=== PATIENT | female | born 2000 | race Caucasian/White ===

== ENCOUNTER 2021-11-16 14:41 | Inpatient (IN) | payer OTHER, SELFPAY ==
[2021-11-16] VITALS (81 sets, daily range): BP systolic 118–143; BP diastolic 58–117; PULSE 75–134; TEMP 36.8–37.1; O2SAT 100; BMI 30.3
--- NOTE | 2021-11-16 14:41 | LDADM ---
This patient, Geri Lzoano, was admitted to Labor/Delivery/Recovery 106 on 11/16/21 at 14:41. Plans for labor, pain management and were discussed with patient. Patient/family oriented to hospital policies and general routines including ID bracelet, bed and alarms, visiting hours, pain management, procedures, bathroom and other care routines, personal items, smoking policy, room service/diet and guest tray routines, security routines, and visiting hours. Patient/Family are encouraged to report perceived risks to care and to ask questions if they do not understand what they are told or what they should do. See OBIX for further documentation.
--- OUTSIDE RECORDS SUMMARY | 2021-11-16 14:52 | XMS_ITS ---
:2000 Author Care Team Providers Name Role Phone BAKARI JENNA BARCENAS Primary Care Provider [phone] Allergies Code Code System Name Reaction Severity Status Onset Latex, ? ? Active ? Natural Rubber Notes: STEROID INHALER Medications Name Status Start Date Stop Date ? ? Albuterol Sulfate HFA Completed ? 07/26/2021 albuterol sulfate HFA 90 mcg/actuation aerosol inhaler Active ? Not available TAKE 2 PUFFS BY MOUTH EVERY 6 HOURS NEEDED FOR WHEEZE OR SHORTNESS OF BREATH bupropion HCl SR 150 mg tablet,12 hr Completed ? 09/22/2021 sustained-release bupropion HCl XL 150 mg 24 hr tablet, Active ? Not available extended release bupropion HCl XL 300 mg 24 hr tablet, extended release Completed ? 06/14/2021 TAKE 1 TABLET BY MOUTH EVERY DAY IN THE MORNING fluconazole 150 mg tablet Completed ? 2021 TAKE 1 TABLET BY MOUTH EVERY DAY FOR 1 DAY Gianvi (28) 3 mg-0.02 mg tablet Completed ? 06/14/2021 TAKE 1 TABLET BY MOUTH EVERY DAY hydroxyzine HCl 25 mg tablet Completed ? 01/2021 TAKE 1/2 1 TABLET EVERY 8 HOURS NEED ED FOR ANXIETY OR AT BEDTIME FOR INSOMNIA lamotrigine 100 mg tablet Completed ? 2020 TAKE 1/2 TABLET BY MOUTH AT BEDTIME X 1 0DAYS AND THEN UP TO 1 TABLET AT BEDTIME lamotrigine 150 mg tablet Completed ? 2020 TAKE 1 TABLET BY MOUTH EVERYDAY AT BEDTIME
--- OUTSIDE RECORDS SUMMARY | 2021-11-16 14:52 | XMS_ITS | Encounter Summary ---
:2000 Author Care Team Providers Name Role Phone Evelin Jaylene BARCENAS Primary Care Provider [phone] Reason for Visit OB visit [id number] Assessment and Plan 1. Routine care Discussion Note: None recorded.Patient educational handouts: No information available. Plan of Care Reminders Provider Appointments None ? ? recorded. Lab None ? ? recorded. Referral None ? ? recorded. Procedures None ? ? recorded. Surgeries None ? ? recorded. Imaging None ? ? recorded. Medications Name Start Date ? ? albuterol sulfate HFA 90 mcg/actuation aerosol inhaler ? TAKE 2 PUFFS BY MOUTH EVERY 6 HOURS NEEDED FOR WHEEZE OR SHORTNESS OF BREATH bupropion HCl XL 150 mg 24 hr tablet, extended release ? TAKE 1 TABLET BY MOUTH EVERY DAY ondansetron HCl 4 mg tablet ? TAKE 1 TABLET BY MOUTH EVERY 6 HOURS NEEDED Vitamins ? valacyclovir 1 gram tablet ? Take 1 tablet every day by oral route for 5 days. valacyclovir 500 mg tablet ? TAKE 1 TABLET BY MOUTH TWICE A DAY Medications Administered None recorded. Vitals Height Weight BMI Blood Pressure 5 ft 8 in 170 lbs 25.8 kg/m2 116/76 mm[Hg] Results Lab Results
--- OUTSIDE RECORDS SUMMARY | 2021-11-16 14:52 | XMS_ITS | Encounter Summary ---
:2000 Author Care Team Providers Name Role Phone Evelin Jaylene BARCENAS Primary Care Provider [phone] Reason for Visit OB visit OB [id number] EDC 11/10/2021 LMP 01/22/2021 Assessment and Plan Assessment Note Patient is _36__weeks . Dis cussed plan. 1. Routine care Discussion Note: None recorded.Patient [...]
--- OUTSIDE RECORDS SUMMARY | 2021-11-16 14:52 | XMS_ITS | Encounter Summary ---
:2000 Author Care Team Providers Name Role Phone Evelin Jaylene BARCENAS Primary Care Provider [phone] Reason for Visit None recorded. Assessment and Plan 1. Post-term of 40 to 42 weeks ? non-stress test Discussion Note: None recorded.Patient educational handouts: No information available. Plan of Care Reminders Provider Appointments None ? ? recorded. Lab None ? ? recorded. Referral None ? ? recorded. Procedures None ? ? recorded. Surgeries None ? ? recorded. Imaging 2021 [place] Non-stress Test Medications Name Start Date ? ? albuterol [...] A DAY Medications Administered None recorded. Vitals None recorded. Results Lab Results None rec
--- OUTSIDE RECORDS SUMMARY | 2021-11-16 14:52 | XMS_ITS | Encounter Summary ---
:2000 Author Care Team Providers Name Role Phone Evelin Jaylene BARCENAS Primary Care Provider [phone] Reason for Visit OB visit OB [id number] EDC 11/10/2021 LMP 01/22/2021 Assessment and Plan Assessment Note Patient is34 ___weeks . Dis cussed plan. 1. Routine care [...]
--- OUTSIDE RECORDS SUMMARY | 2021-11-16 14:52 | XMS_ITS | Encounter Summary ---
:2000 Author Care Team Providers Name Role Phone Evelin Jaylene BARCENAS Primary Care Provider [phone] Reason for Visit OB visit OB [id number] EDC 11/10/2021 LMP 01/22/2021 Assessment and Plan Assessment Note Patient is 40___weeks . Dis cussed plan. 1. Routine care [...]
--- OUTSIDE RECORDS SUMMARY | 2021-11-16 14:52 | XMS_ITS | Encounter Summary ---
:2000 Author Care Team Providers Name Role Phone Evelin Jaylene BARCENAS Primary Care Provider [phone] Reason for Visit OB visit OB [id number] EDC 11/10/2021 LMP 01/22/2021 Assessment and Plan Assessment Note Patient is _36__weeks . Dis cussed plan. 1. Routine care ? Wellbutrin XL 150 mg 24 hr tablet, extended release 2. Genital herpes simplex ? Valtrex 500 mg tablet Discussion Note: None recorded.Patient educational handouts: No [...] every day by oral route for 5 da
--- OUTSIDE RECORDS SUMMARY | 2021-11-16 14:52 | XMS_ITS | Encounter Summary ---
:2000 Author Care Team Providers Name Role Phone Evelin Jaylene BARCENAS Primary Care Provider [phone] Reason for Visit OB visit OB [id number] EDC 11/10/2021 LMP 01/22/2021 Assessment and Plan Assessment Note Patient is _30__weeks . Dis cussed plan. 1. Routine care [...]
--- OUTSIDE RECORDS SUMMARY | 2021-11-16 14:52 | XMS_ITS | Encounter Summary ---
:2000 Author Care Team Providers Name Role Phone Evelin Jaylene BARCENAS Primary Care Provider [phone] Reason for Visit OB visit OB [id number] EDC 11/10/2021 LMP 01/22/2021 Assessment and Plan Assessment Note Patient is _37__weeks . Dis cussed plan. 1. Routine care [...]
--- OUTSIDE RECORDS SUMMARY | 2021-11-16 14:52 | XMS_ITS | Encounter Summary ---
:2000 Author Care Team Providers Name Role Phone Evelin Mariee NP Primary Care Provider [phone] Reason for Visit None recorded. Assessment and Plan 1. Uterine size for dates discre pancy ? US, obstetric, follow-up Discussion Note: None recorded.Patient educational handouts: No information available. Plan of Care Reminders Provider Appointments None ? ? recorded. Lab None ? ? recorded. Referral None ? ? recorded. Procedures None ? ? recorded. Surgeries None ? ? recorded. Imaging US, 10/19/2021 [place] Obstetric, Follow-up Medications Name Start Date ? ? albuterol [...]
--- OUTSIDE RECORDS SUMMARY | 2021-11-16 14:52 | XMS_ITS | Encounter Summary ---
:2000 Author Care Team Providers Name Role Phone Evelin Jaylene BARCENAS Primary Care Provider [phone] Reason for Visit None recorded. Assessment and Plan 1. Post-term ? US, obstetric, biophysical profile + non-stress test Discussion Note: None recorded.Patient educational handouts: No information available. Plan of Care Reminders Provider Appointments None recorded. ? ? Lab None recorded. ? ? Referral None recorded. ? ? Procedures None recorded. ? ? Surgeries None recorded. ? ? Imaging US, Obstetric, [facility] Biophysical Profile + 2021 Non-stress Test Medications Name Start Date ? [...]
--- OUTSIDE RECORDS SUMMARY | 2021-11-16 14:53 | XMS_ITS | Encounter Summary ---
:2000 Author Care Team Providers Name Role Phone Evelin Jaylene BARCENAS Primary Care Provider [phone] Reason for Visit None recorded. Assessment and Plan 1. condition affecting obs tetrical care of mother ? US, obstetric, follow-up Discussion Note: None recorded.Patient educational handouts: No information available. Plan of Care Reminders Provider Appointments None ? ? recorded. Lab None ? ? recorded. Referral None ? ? recorded. Procedures None ? ? recorded. Surgeries None ? ? recorded. Imaging US, 08/26/2021 [place] Obstetric, Follow-up Medications Name Start Date ? [...]
--- OUTSIDE RECORDS SUMMARY | 2021-11-16 14:53 | XMS_ITS | Encounter Summary ---
:2000 Author Care Team Providers Name Role Phone Evelin Jaylene BARCENAS Primary Care Provider [phone] Reason for Visit OB visit OB [id number] EDC 11/10/2021 LMP 01/22/2021 Assessment and Plan Assessment Note Patient is _29__weeks . Dis cussed plan. 1. Routine care [...]
[2021-11-16 16:07] LABS: Basophils Percent Auto 0.3 % (0.2-1.2); Eosinophils Absolute Auto 0.1 K/mm3 (0-0.3); Eosinophils Percent Auto 0.5 % (0-4.4); Hematocrit 33.5 % (37.0-47.0); Hemoglobin 10.6 g/dL (12.0-15.0); Immature Granulocyte Percent A 0.7 % (0-0.5); Lymphocytes Absolute Auto 2.35 K/mm3 (0.9-3.2); Lymphocytes Percent Auto 16.8 % (18.3-44.2); Mean Corpuscular HGB Conc 31.6 g/dl (32-36); Mean Corpuscular Volume 88.4 fl (80-100); Mean Platelet Volume 11.5 fl (7.4-10.4); Monocytes Absolute Auto 0.8 K/mm3 (0.1-0.6); Monocytes Percent Auto 5.9 % (2.6-8.5); Neutrophils Absolute Auto 10.6 K/mm3 (1.3-6.7); Neutrophils Percent Auto 75.8 % (45.5-73.1); Platelet Count Result 240 k/mm3 (150-375); Red Blood Count 3.79 M/mm3 (4.2-5.4); Red Cell Distribution Width 14.1 % (11.5-14.5)
--- NOTE | 2021-11-16 16:15 | WPDOBADMIT ---
Obstetrics - Admit Note Admission Note: record reviewed. No pertinent additions to the history and/or any subsequent changes in the physical findings that are not consistent with the expected course of the were found. IOL 40.6 weeks gestation SVE /-2, AROM large amount of clear odorless fluid Additions to the history and/or subsequent changes in the physical findings follow. None.
--- NOTE | 2021-11-16 19:13 | WPDANESEPP ---
Anes - Eval Pre Procedure Procedure: LAbor epidural Date/Time: 11/16/21 19:13 Surgeon: Marta Preop Diagnosis: Abd pain with contractions Pre Op Diagnosis: Induction of Labor Patient Data Age: 21 Gender: F Height: 1.73 m Weight: 90.5 kg Last Vital Signs Temp 98.3 F 11/16/21 17:30 Pulse 134 H 11/16/21 18:51 BP 133/95 H 11/16/21 18:51 Allergies Allergy/AdvReac Type Severity Reaction Status Date / Time Latex, Natural Rubber Allergy Itching Verified 11/16/21 15:25 steroid inhaler Allergy Difficulty Uncoded 11/16/21 15:25 Breathing Home Medications Medication Instructions Recorded Confirmed Type albuterol sulfate 90 mcg INHALATION PRN PRN 11/16/21 11/16/21 History valacyclovir 1,000 mg PO BID 11/16/21 11/16/21 History Laboratory Tests 11/16/21 11/16/21 11/16/21 15:56 15:56 15:56 WBC 14.0 K/mm3 H K/mm3 (4.5-10.0) RBC 3.79 M/mm3 L M/mm3 (4.2-5.4) Hgb 10.6 g/dL L g/dL (12.0-15.0) Hct 33.5 % L % (37.0-47.0) MCV 88.4 fl fl (80-100) MCH 28.0 pg pg (26-34) MCHC 31.6 g/dl L g/dl (32-36) RDW 14.1 % % (11.5-14.5) Plt Count 240 k/mm3 k/mm3 (150-375) MPV 11.5 fl H fl (7.4-10.4) Immature Gran % (Auto) 0.7 % H % (0-0.5) Neut % (Auto) 75.8 % H % (45.5-73.1) Lymph % (Auto) 16.8 % L % (18.3-44.2) [place] % (Auto) 5.9 % % (2.6-8.5) Eos % (Auto) 0.5 % % (0-4.4) Baso % (Auto) 0.3 % % (0.2-1.2) Lymph # (Auto) 2.35 K/mm3 K/mm3 (0.9-3.2) [place] # (Auto) 0.8 K/mm3 H K/mm3 (0.1-0.6) Eos # (Auto) 0.1 K/mm3 K/mm3 (0-0.3) Baso # (Auto) 0.0 K/mm3 K/mm3 (0.0-0.1) Abs Immat Gran (auto) 0.10 K/mm3 H K/mm3 (0.00-0.031) Absolute Neuts (auto) 10.6 K/mm3 H K/mm3 (1.3-6.7) Absolute Nucleated RBC 0.0 K/mm3 K/mm3 (0.0-0.012) Nucleated RBC % 0.0 % % (0.0-0.2) RPR Pending Blood Type A Positive Antibody Screen Negative Patient hx anesthesia problems: none Family hx anesthesia problems: none Results Review: All pre-operative results and documents have been reviewed as part of the pre-operative evaluation. [facility] Past Medical History Medical History Anxiety and depression Asthma Overweight (BMI 25.0-29.9) and not yet delivered Psychiatric care Family History Family History Father Anxiety Mother Bipolar 1 disorder Depression Hypertension Anxiety Social History Social History Smoking status: Former smoker Tobacco type: cigarettes Second hand tobacco smoke exposure: No Substance use: former Last use: last time in january 2021 Spiritual care concerns: No Exam Day of Procedure 11/16/21 19:13 Patient weight: overweight Heart: regular rate and rhythm Lungs: clear to auscultation Airway: Mallampati scale class II Neurological: alert and oriented
[2021-11-16] MEDS: LACTATED RINGERS 1,000 ML 125 ML IV CONT ×2 (20:50→21:35)
[2021-11-17] VITALS (51 sets, daily range): BP systolic 106–137; BP diastolic 54–110; PULSE 73–128; RESP 14–20; TEMP 36.6–37.6; O2SAT 97–100
[2021-11-17] MEDS: OXYTOCIN 30 UNITS/NS 500 ML 30 UNITS/500 ML BAG IV CONT (02:14)
--- NOTE | 2021-11-17 02:37 | P.PCNOB_ITS ---
OB - Delivery Note Procedure Delivery date: 11/17/21 Procedure: vaginal delivery Events: Elective Induction of Labor Induction method: AROM Delivery monitor: External FHT and External Uterine Route of delivery: Laceration Description: Perineal - 1st Degree Delivery repair: vicryl Specimen: No Quantitative Blood Loss (ml): 275 Anesthesia type: Epidural Disposition: Floor [place] Baby Date of : 11/17/21 Time of : 02:12 Weeks of gestation at delivery: 41 gender: Male Weight (pounds): 8 Weight (ounces): 1 presentation: vertex position: Left Occiput Anterior Placenta delivery description: Spontaneous Cord Vessel Description: 3 Vessels, Nuchal Cord (x2), Loose, Reduced, Clamped/Cut, Delayed Cord Clamping and Around Body (x1) score one minute: 9 score five minutes: 9 Narrative: mother and baby skin to skin in stable condition
[2021-11-17] MEDS: miSOPROStol 200 MCG TABLET 1000 MCG (02:45)
[2021-11-17] MEDS: OXYTOCIN 30 UNITS/NS 500 ML 30 UNITS/500 ML BAG 125 UNITS IV CONT (02:45)
[2021-11-17 04:06] LABS: Amphetamine Screen Urine Negative (Negative); Barbiturate Screen Urine Negative (Negative); Benzodiazepines Screen Urine Negative (Negative); Cannabinoid Screen Urine Negative (Negative); Cocaine Screen Urine Negative (Negative); Methadone Screen Urine Negative (Negative); Opiate Screen Urine Negative (Negative); Phencyclidine Screen Urine Negative (Negative)
[2021-11-17] MEDS: BENZOCAINE 20% AER SPR (*SP) 56 GM CAN 1 SPRAY TOPICAL (04:35)
[2021-11-17] MEDS: WITCH HAZEL 40 PADS 1 PAD TOPICAL (04:35)
[2021-11-17] MEDS: IBUPROFEN 600 MG TABLET PO ×3 (04:35→19:53)
[2021-11-17] MEDS: ACETAMINOPHEN 325 MG TABLET 650 MG PO ×3 (06:57→23:20)
[2021-11-17 11:36] LABS: Rapid Plasma Reagin Non-Reactive (NonReactive)
[2021-11-17] MEDS: DOCUSATE SODIUM 100 MG CAPSULE PO (17:31)
[2021-11-17] MEDS: LANOLIN (LANSINOH) 7.5 GM CREAM 1 APPLIC TOPICAL (17:31)
[2021-11-18] VITALS: BP 122/72; PULSE 79; RESP 16; TEMP 36.8; O2SAT 99
[2021-11-18 04:57] LABS: Hematocrit 31.5 % (37.0-47.0); Hemoglobin 9.8 g/dL (12.0-15.0)
--- NOTE | 2021-11-18 07:58 | PM.OBPNVD ---
OB - PN: Subj Subjective Date/time seen: 11/18/21 07:58 Patient comments: no complaints baby status: doing well OB - PN: Obj Data Labs CBC & Chem 7: 11/18/21 04:21 Labs: Laboratory Results - last 24 hr 11/16/21 11/18/21 15:56 04:21 Hgb 9.8 L Hct 31.5 L RPR Non-reactive OB - PN A/P Plan day: 1 Plan: routine care and discharge home Time Spent With Patient Time: Total time spent is greater than 50% in coordination of care (as documented) at patient's floor/unit and/or counseling patient: Review of Systems Review of Systems: All systems reviewed & are unremarkable except as noted in HPI and below Exam Const: General: cooperative, healthy appearing and comfortable
--- NOTE | 2021-11-18 08:00 | PM.OBDSVD ---
DS: Admitting Diagnosis Discharge Date 11/18/21 Admitting Diagnosis IOL OB - DS: Summary OB Procedures : None OB Procedures Intrapartum: Spontaneous Vag Delivery OB Procedures: : None Time Spent with Patient Time attestation: Total time spent providing and/or coordinating discharge services: DS: Data Data Completed and Pending Labs on day of discharge: Labs from last 24 hours 11/18/21 11/16/21 04:21 15:56 Hgb 9.8 L Hct 31.5 L RPR Non-reactive Discharge Plan Discharge Attending physician on discharge: Lui Schumacher Discharging Clinician: Grecia Barreto Patient Disposition: Home, Self-Care Activity: pelvic rest Diet: as tolerated and regular Patient Instructions: Antibiotic Form Stand Alone Forms: General Discharge Information Follow-up/Referrals: Grecia Barreto CNM [Certified Nurse [employer]] - Discharge Medications: Continued valacyclovir 1 gram tablet 1,000 mg PO BID RF: 0 albuterol sulfate 90 mcg/actuation HFA aerosol inhaler 90 mcg INHALATION PRN PRN (Reason: Shortness Of Breath Or Wheezing) RF: 0 Date of admission: 11/16/21 14:41 Primary Care Provider: RitaEvelin Admitting Provider: Lui Schumacher Attending physician on admission: Lui Schumacher Condition: Stable
[2021-11-18 08:05] VITALS: BP 114/72; PULSE 78; RESP 18; TEMP 36.6; O2SAT 100
--- NOTE | 2021-11-18 09:28 | WPDANLDPN2 ---
Anes-Prog Note L&D Date/Time: 11/18/21 09:28 Comfortable throughout: labor and delivery Neuraxial method: epidural Epidural/Spinal procedure site: clean & non-tender Neuro status: Neuro function grossly intact. Cardiovascular status: normal Respiratory status: normal Airway patency: baseline Mental status: baseline Post-Op hydration status: normal Vital Signs: Last Vital Signs Temp 36.6 C 11/18/21 08:05 Pulse 78 11/18/21 08:05 Resp 18 11/18/21 08:05 BP 114/72 11/18/21 08:05 Pulse Ox 100 11/18/21 08:05 Pain score (VAS): 0 Post-procedural complaints: none Patient feedback: Patient satisfied with anesthetic care.
--- NOTE | 2021-11-18 10:11 | PC.NURSE ---
0805 -Pt is sleeping and is in the nursery. 0845 - Mom is sleeping. Consulted with patient regarding her desire to breastfeed her baby. Reviewed milk production, stimulating to breastfeed 8-12 times in 24 hours and reminder her that it has been 4 hours since the last feeding. Last feeding was a bottle feed. Mother was latching optimally yesterday and she voiced understanding to call if the infant doesn't latch, if there's discomfort with latching or if she could use some guidance or encouragement with .
--- NOTE | 2021-11-18 10:48 | PC.NURSE ---
1035 -RN called into the room related to mother had not been able to latch . Encouraged mother with to the right breast in football position. latched optimally with no discomfort to mother. Mother's feelings were assessed. Mother stated she had not ordered breakfast and RN encouraged eating. Mother agreed to drink some juice before they were discharged to home. Reviewed with parents the importance of taking care of staying fed, hydrated so mother can better take care of her infant. Mother plans to follow up with the [facility] office. Mother voiced understanding of calling for assistance if baby doesn't latch to the other breast, if there's discomfort with latching or has other needs. Reported to primary RN.
[2021-11-18] MEDS: POLYSACCHARIDE IRON COMPLEX 150 MG CAPSULE PO (11:20)
[2021-11-18] MEDS: DOCUSATE SODIUM 100 MG CAPSULE PO (11:20)
[2021-11-18] MEDS: MULTIVIT/MIN/PREN/FOL AC/IRON TABLET 1 TAB PO (11:20)
[2021-11-18] MEDS: IBUPROFEN 600 MG TABLET PO (11:20)
[2021-11-18] MEDS: TETANUS,DIPHTHERIA,AC PERTUSSIS ADULT (0.5 ML) BOOSTRIX IM (11:22)
--- NOTE | 2021-11-18 13:52 | PC.NURSE ---
1035 - RN was called to the room to assist mother with latching . Mother states she is having difficulty keep awake to breastfeed. Encouraged mother reminding her of stimulating with skin to skin, touch, talking and position changes to encouraged . Mother latched infant to the right breast with football hold. Father of baby encouraged to support mom and baby with tasks reviewed on how to help. Mother has drank some orange juice but has not eaten yet. She states she is tired. Mother voiced understanding to call for assistance to latch infant to the other breast. Reported to primary RN. Before mother went home RN checked in with mother to see how had gone. Baby had breastfed for 20 min, then mother gave the infant about 20 mls of formula with a bottle. She is doing her ADL's to go home, seems more awake, pleasant and smiles to the RN. Encouraged mother to follow up and call if she needs assistance from her Provider, ICP or community support. Mother voiced understanding the information and plans to return a phone call to Ana at [facility] office.
[2021-11-19 12:22] VITALS: BP 128/80; PULSE 91; RESP 18; TEMP 36.6; O2SAT 99
== END 2021-11-18 12:30 | disposition home or self-care (01) | DRG 560 ==
LOC: ANHLDR 14:50 → ANHOB2 11-17 05:45
PROVIDERS: Advanced Practice Midwife; Admitting Provider Obstetrics & Gynecology; PCP Nurse Practitioner Family; Visit Provider Obstetrics & Gynecology
DX: O40.3XX0 Polyhydramnios, third trimester, not applicable or unspecified (principal); Z37.0 Single live birth; Z3A.41 41 weeks gestation of pregnancy; O70.0 First degree perineal laceration during delivery; O69.82X0 Labor and delivery complicated by other cord entanglement, without compression, not applicable or unspecified
CPT/HCPCS: 36415; 80307; 85014; 85018; 85025; 86592; 86850; 86900; 86901; 90715; A9270; J2590; J2795; J7120

== ENCOUNTER 2023-11-19 08:50 | Outpatient (CLI) | payer OTHER, SELFPAY ==
--- NOTE | ~2023-11-19 | US_ITS ---
US breast LT limited DATE: 11/19/2023 09:51 INDICATION: Patient reports pain only in the left breast. (The technologist reported notifying the [facility] physician's office that pain was only left sided, and the order was changed to left breast u ltrasound.) TECHNIQUE: Real-time imaging was performed in the area of complaint is of left breast pain from 12:00 to 9:00 and the axillary area. COMPARISON: None FINDINGS: No suspicious mass or shadowing, cyst or other significant sonographic abnormality is detec marifer. IMPRESSION: Negative Reviewed, dictated and finalized at [facility]. Reviewed, dictated and finalized at [facility]. IMPRESSION: Negative
== END 2023-11-19 08:51 | disposition home or self-care (01) ==
PROVIDERS: PCP Nurse Practitioner Family; Visit Provider Nurse Practitioner Obstetrics & Gynecology
DX: N64.4 Mastodynia (principal)
CPT/HCPCS: 76642

== ENCOUNTER 2025-03-07 09:39 | Emergency (ER) | payer MEDICAID, SELFPAY ==
[2025-03-07 09:52] VITALS: BP 127/76; PULSE 94; RESP 16; TEMP 37.2; O2SAT 100
--- NOTE | 2025-03-07 14:35 | ED_ITS ---
HPI - Skin/Abscess/Foreign Bdy General Chief complaint: Skin/Abscess/Foreign Body Stated complaint: RASH Time Seen by Provider: 03/07/25 09:45 Source: patient and RN notes reviewed Mode of arrival: ambulatory Limitations: no limitations History of Present Illness HPI narrative: 24-year-old female presents presents Express Care complaining of possible poison oak rash. Patient reports having 2 bumps on her bilateral lower arms. Patient states they are very pruritic. Patient denies any pain, fevers, body aches, chills. Patient is unsure she was bit by a bug or not. Patient states that couple days ago she was out doing [employer] work but is not sure if she was exposed to poison oak or poison delonte. Related Data Home Medications ?Medication ?Instructions ?Recorded ?Confirmed ?Last Taken ?Type albuterol sulfate 90 mcg/actuation 90 mcg inhalation PRN PRN 11/16/21 11/16/21 Unknown History aerosol inhaler Shortness Of Breath Or Wheezing hydroxyzine pamoate 25 mg capsule mg 03/07/25 Unknown History Allergies Allergy/AdvReac Type Severity Reaction Status Date / Time Latex, Natural Rubber Allergy Itching Verified 03/07/25 09:53 steroid inhaler Allergy Difficulty Uncoded 03/07/25 09:53 Breathing Review of Systems Review of Systems: CONSTITUTIONAL: Denies fever, chills, or sweats. EYES: Denies visual changes, redness, or discharge. ENT: Denies rhinorrhea, congestion, sore throat, or otalgia. CARDIOVASCULAR: Denies chest pain, palpitations, or edema. RESPIRATORY: Denies cough or dyspnea. GASTROINTESTINAL: Denies abdominal pain, nausea, vomiting, or diarrhea. GENITOURINARY: Denies dysuria or hematuria. SKIN: Denies rash. Positive for wounds and itching MUSCULOSKELETAL: Denies back pain, joint pain, or myalgia. NEUROLOGIC: Denies headache, numbness, or weakness. PSYCHIATRIC: Denies anxiety or depression. All other systems reviewed are negative, except as documented in HPI. [facility] Past Medical History Medical History Psychiatric care Anxiety and depression Asthma Overweight (BMI 25.0-29.9) and not yet delivered Family History Family History Father Anxiety Mother Bipolar 1 disorder Depression Hypertension Anxiety Social History Social History Smoking status: Former smoker Tobacco type: cigarettes Second hand tobacco smoke exposure: No Substance use: former Last use: last time in january 2021 Spiritual care concerns: No Comments At the time of my signature, I reviewed and agree with the nursing past medical, surgical, social, and family history. There is no relevant family history pertinent to the patient complaint. Exam Narrative: GENERAL: This is a well-nourished, well-developed adult, in no apparent distress. They are non ill-appearing, nontoxic appearing. HEAD: normocephalic, atraumatic. EYES: Sclera clear/white. Conjunctiva normal. Vision is grossly intact. Extraocular movements intact EARS: External ears normal, Hearing grossly intact. NOSE: External nose normal THROAT: Mucous membranes moist, NECK: Neck supple, CARDIOVASCULAR: Regular rate and rhythm RESPIRATORY: Respiratory rate normal, respiratory effort nonlabored, no respiratory distress SKIN: Two puncture wounds that are erythematous and papular to patient's bilateral distal forearms. They are both measuring approximately 1 cm x 1 cm. They are nontender. No area of fluctuance or induration. No exudate. NEURO: awake, alert, and oriented to person, place and time. There were no obvious focal neurologic abnormalities. EXTREMITIES: No joint tenderness, effusion, or edema noted. Course Course Emergency Course: Portions of this record may have been created with voice recognition software Level of Care: Express Care Visit Vital Signs Vital signs: Vital Signs Temperature 98.9 F 03/07/25 09:52 Pulse Rate 94 03/07/25 09:52 Respiratory Rate 16 03/07/25 09:52 Blood Pressure 127/76 03/07/25 09:52 Pulse Oximetry 100 03/07/25 09:52 Temperature 98.9 F 03/07/25 09:52 Pulse Rate 94 03/07/25 09:52 Respiratory Rate 16 03/07/25 09:52 Blood Pressure 127/76 03/07/25 09:52 Pulse Oximetry 100 03/07/25 09:52 Reviewed MDM - Skin/Abscess/Foreign Bdy MDM Narrative Medical decision making narrative: Unlikely patient has poison oak or poison [place] contact dermatitis. Wounds appear to be bug bites/puncture wounds. Will prescribe steroid cream. Evidence of cellulitis. Discussed physical exam findings. Advised supportive measures and signs/symptoms to go to the ER. Pt is appropriate for outpt treatment and f/u. Differential Diagnosis Differential diagnosis: Likely abscess of skin or subcutaneous tissue, cellulitis, insect bites and contact dermatitis Critical Care Time Critical Care Time Critical Care Time: No Discharge Plan Discharge Clinical Impression: Insect bites Patient Disposition: Home Condition: Stable Instructions: Insect Bite or Sting (ED) Additional Instructions: Use a steroid cream as directed and apply only to the affected area. You may use calamine lotion, camphor, hydrocortisone cream Benadryl cream as needed for itchiness symptoms. You may also take Zyrtec or Claritin as needed for allergy or itchiness symptoms. Avoid scratching the bites as it may increase the risk of infection. Wash the area daily with mild soap and water. Follow-up PCP in 3-5 days. If you develop any worsening redness, swelling, discharge, fevers, breathing problems, or any other concerns please go to the ER immediately. Patient Language: Japanese Prescriptions: New triamcinolone acetonide 0.1 % cream 1 applic topical BID 7 Days Qty: 15 0RF No Action hydroxyzine pamoate 25 mg capsule albuterol sulfate 90 mcg/actuation HFA aerosol inhaler 90 mcg INHALATION PRN PRN (Reason: Shortness Of Breath Or Wheezing) Follow-up/Referrals: Jaylene,Evelin Avila NP [Primary Care Provider] - Stand Alone Forms: Work/School Release IP Time of Disposition: 10:07
== END 2025-03-07 10:14 | disposition home or self-care (01) ==
PROVIDERS: PCP Nurse Practitioner Family
DX: S50.862A Insect bite (nonvenomous) of left forearm, initial encounter (principal); S50.861A Insect bite (nonvenomous) of right forearm, initial encounter; W57.XXXA Bitten or stung by nonvenomous insect and other nonvenomous arthropods, initial encounter; Z87.891 Personal history of nicotine dependence; J45.909 Unspecified asthma, uncomplicated
CPT/HCPCS: 99213; G0463